=== PATIENT | female | born 1945 | race Caucasian/White ===

== ENCOUNTER 2022-10-19 16:37 | Inpatient (IN) | payer MEDICARE ==
[~2022-10-19] VITALS: Ht 152.2 cm; Wt 73.2 kg
--- NOTE | 2022-10-19 17:59 | ED Respiratory ---
General Chief Complaint: Respiratory Problems Stated Complaint: NAUSEA Nursing Triage Note: PT AMB TO RM 2 WITH CC OF SOA X6 MONTHS. [facility], NAUSEA AND CONCERN FOR PE. PT STATES THE [facility] WWANTED TO OBTAIN A CT OF ABD BUT WAS UNABLE TO D/T LABS. RECENT RESP ILLNESS 1 MONTH PRIOR. PT A&OX4 Source: patient (PT IS POOR HISTORIAN. DAUGHTER GIVES MOST INFORMATION), family (DAUGHTER) History of Present Illness Date Seen by Provider: Oct 19, 2022 Time Seen by Provider: 17:50 Initial Comments PT ARRIVES VIA POV--SENT HERE FROM [facility] C/O SHORTNESS OF BREATH X 6 MONTHS SHE HAD BEEN DX WITH BOTH BRONCHITIS AND PNEUMONIA IN THE LAST 6 MONTHS SHE DENIES ANY PRIOR HISTORY OF RESPIRATORY PROBLEMS AND DOES NOT WEAR HOME O2 OR HAVE ANY INHALERS OR NEBULIZERS O2 SATS WERE IN THE 80'S AT [facility]. SHE HAS BEEN SEEN AT [facility] CLINIC SHE C/O ONGOING NAUSEA FOR THE LAST FEW MONTHS, NO VOMITING, NO DIARRHEA, NO ABDOMINAL PAIN SHE HAS NOT BEEN EATING OR DRINKING MUCH LATELY AND HAS HAD DECREASED URINE OUTPUT SHE STATES SHE HAS HAD LAB AT [facility] AND WAS TOLD THAT SHE HAD POOR KIDNEY FUNCTION AND WAS SENT HERE WAS TOLD SHE WAS HERE TO RULE OUT BLOOD CLOT IN LUNGS NO CHEST PAIN NO FEVER NO SWELLING IN LEGS/FEET OR PAIN IN CALVES NO DIZZINESS OR SYNCOPE NO COUGH PT SMOKED < 1/2 PPD, QUIT IN 1989. DENIES ALCOHOL OR DRUG USE PT IS DIABETIC, WAS ON ORAL MEDICATIONS, BUT THESE WERE STOPPED DUE TO DECREASED KIDNEY FUNCTION. SHE HAS HTN, HYPERLIPIDEMIA SHE HAS HAD COVID VACCINE X 3, NO FLU VACCINE THIS SEASON PCP: [facility] Allergies and Home Medications Allergies Coded Allergies: No Allergy Information Available (Unverified , 10/19/22) Review of Systems Review of Systems Constitutional: no symptoms reported EENTM: no symptoms reported Respiratory: see HPI; No cough; dyspnea on exertion, short of breath Cardiovascular: no symptoms reported; No chest pain, No edema, No palpitations, No syncope Gastrointestinal: see HPI; No abdominal pain, No diarrhea; loss of appetite, nausea; No vomiting Genitourinary: see HPI, decreased output Musculoskeletal: no symptoms reported Skin: no symptoms reported Psychiatric/Neurological: No Symptoms Reported Hematologic/Lymphatic: No Symptoms Reported Immunological/Allergic: no symptoms reported Past Zcixbxk-Syiaxi-Hfjeof Hx Patient Social History Tobacco Use?: Yes Tobacco type used: Cigarettes Smoking Status: Former Smoker Substance use?: No Alcohol Use?: No Pt feels they are or have been: No Past Medical History Surgery/Hospitalization HX: HTN, DM,HDL Surgeries: No Respiratory: Yes Pneumonia, Chronic Bronchitis Cardiac: Yes High Cholesterol, Hypertension Neurological: No Genitourinary: No Gastrointestinal: No Musculoskeletal: No Endocrine: Yes Diabetes, Non-Insulin dep HEENT: No (GLASSES) Cancer: No Psychosocial: No Integumentary: No Blood Disorders: No Physical Exam Vital Signs - First Documented 10/19/22 17:17 Pulse 67 Resp 18 B/P (MAP) 150/95 (113) Pulse Ox 97 O2 Delivery Nasal Cannula O2 Flow Rate 3.00 Capillary Refill : Less Than 3 Seconds Height: '" Weight: lbs. oz. 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, no motor/sensory deficits, al ert, normal mood/affect, oriented x 3 (POOR MEMORY) Skin: normal color, warm/dry Focused Exam Lactate Level 10/19/22 17:30: Lactic Acid Level 1.06 Lactic Acid Level Laboratory Tests Test 10/19/22 17:30 Lactic Acid Level 1.06 MMOL/L (0.50-2.00) Progress/Results/Core Measures Suspected Sepsis SIRS Temperature: Pulse: 67 Respiratory Rate: 18 Laboratory Tests 10/19/22 17:30: White Blood Count 10.0 Blood Pressure 150 /95 Mean: 113 10/19/22 17:30: Lactic Acid Level 1.06 Laboratory Tests 10/19/22 17:30: Creatinine 1.35H, INR Comment 1.0, Platelet Count 536H, Total Bilirubin 1.3H Results/Orders Lab Results Laboratory Tests Test 10/19/22 17:30 10/19/22 18:07 10/19/22 20:00 Range/Units White Blood Count 10.0 4.3-11.0 10^3/uL Red Blood Count 5.21 H 3.80-5.11 10^6/uL Hemoglobin 13.4 11.5-16.0 g/dL Hematocrit 45 35-52 % Mean Corpuscular Volume 85 80-99 fL Mean Corpuscular Hemoglobin 26 25-34 pg Mean Corpuscular Hemoglobin Concent 30 L 32-36 g/dL Red Cell Distribution Width 14.7 H 10.0-14.5 % Platelet Count 536 H 130-400 10^3/uL Mean Platelet Volume 10.2 9.0-12.2 fL Immature Granulocyte % (Auto) 0 % Neutrophils (%) (Auto) 74 42-75 % Lymphocytes (%) (Auto) 14 12-44 % Monocytes (%) (Auto) 7 0-12 % Eosinophils (%) (Auto) 4 0-10 % Basophils (%) (Auto) 1 0-10 % Neutrophils # (Auto) 7.4 1.8-7.8 10^3/uL Lymphocytes # (Auto) 1.4 1.0-4.0 10^3/uL Monocytes # (Auto) 0.7 0.0-1.0 10^3/uL Eosinophils # (Auto) 0.4 H 0.0-0.3 10^3/uL Basophils # (Auto) 0.1 0.0-0.1 10^3/uL Immature Granulocyte # (Auto) 0.0 0.0-0.1 10^3/uL Erythrocyte Sedimentation Rate 9 0-30 MM/HR Prothrombin Time 13.5 12.2-14.7 SEC INR Comment 1.0 0.8-1.4 Activated Partial Thromboplast Time 31 24-35 SEC D-Dimer 0.57 H 0.00-0.49 UG/ML Sodium Level 138 135-145 MMOL/L Potassium Level 4.1 3.6-5.0 MMOL/L Chloride Level 105 98-107 MMOL/L Carbon Dioxide Level 18 L 21-32 MMOL/L Anion Gap 15 H 5-14 MMOL/L Blood Urea Nitrogen 12 7-18 MG/DL Creatinine 1.35 H 0.60-1.30 MG/DL Estimat Glomerular Filtration Rate 40 BUN/Creatinine Ratio 9 Glucose Level 114 H 70-105 MG/DL Lactic Acid Level 1.06 0.50-2.00 MMOL/L Calcium Level 9.3 8.5-10.1 MG/DL Corrected Calcium 8.9 8.5-10.1 MG/DL Magnesium Level 1.7 1.6-2.4 MG/DL Total Bilirubin 1.3 H 0.1-1.0 MG/DL Aspartate Amino Transf (AST/SGOT) 16 5-34 U/L Alanine Aminotransferase (ALT/SGPT) 12 0-55 U/L Alkaline Phosphatase 90 40-136 U/L Total Creatine Kinase 34 29-168 U/L Creatine Kinase MB 1.4 <6.6 NG/ML Myoglobin 50.7 10.0-92.0 NG/ML Troponin I < 0.028 <0.028 NG/ML C-Reactive Protein High Sensitivity 0.20 0.00-0.50 MG/DL B-Type Natriuretic Peptide 56.9 <100.0 PG/ML Total Protein 8.3 H 6.4-8.2 GM/DL Albumin 4.5 3.2-4.5 GM/DL TSH Lipscomb Testing 1.74 0.35-4.94 UIU/ML Influenza Type A (RT-PCR) Not Detected Not Detecte Influenza Type B (RT-PCR) Not Detected Not Detecte SARS-CoV-2 RNA (RT-PCR) Not Detected Not Detecte Blood Gas Puncture Site LEFT RADIAL Blood Gas Patient Temperature 97.9 Arterial Blood pH 7.32 *L 7.37-7.43 Arterial Blood Partial Pressure CO2 46 H 35-45 MMHG Arterial Blood Partial Pressure O2 96 H 79-93 MMHG Arterial Blood HCO3 23 23-27 MMOL/L Arterial Blood Total CO2 24.6 21.0-31.0 MMOL/L Arterial Blood Oxygen Saturation 97 94-100 % Arterial Blood Base Excess -2.2 -2.5-2.5 MMOL/L Deep Test YES-POS Blood Gas Ventilator Setting NO Blood Gas Inspired Oxygen 2 My Orders Orders - ADRY MEI DO Ed Iv/Invasive Line Start (10/19/22 17:57) Ekg Tracing (10/19/22 17:57) O2 (10/19/22 17:57) Monitor-Rhythm Ecg Trace Only (10/19/22 17:57) Chest 1 View, Ap/Pa Only (10/19/22 17:57) Bnp [place] (10/19/22 17:57) Cbc With Automated Diff (10/19/22 17:57) Comprehensive Metabolic Panel (10/19/22 17:57) Creatine Kinase (10/19/22 17:57) Creatine Kinase Mb (10/19/22 17:57) Hs C Reactive Protein (10/19/22 17:57) Fibrin Degradation Products (10/19/22 17:57) Lactic Acid Analyzer (10/19/22 17:57) Magnesium (10/19/22 17:57) Protime With Inr (10/19/22 17:57) Partial Thromboplastin Time (10/19/22 17:57) Thyroid Analyzer (10/19/22 17:57) Troponin I Mj (10/19/22 17:57) Ua Culture If Indicated (10/19/22 17:57) Blood Culture (10/19/22 17:57) Erythrocyte Sedimentation Rate (10/19/22 17:57) Myoglobin Serum (10/19/22 17:57) Covid 19 Inhouse Test (10/19/22 17:57) Sputum Culture (10/19/22 17:57) Ed Iv/Invasive Line Start (10/19/22 17:57) Ed Iv/Invasive Line Start (10/19/22 17:57) Vital Signs Adult Sepsis Patie Q15M (10/19/22 17:57) O2 (10/19/22 17:57) Remove Rings In Anticipation O (10/19/22 17:57) Influenza A And B By Pcr (10/19/22 17:57) Arterial Blood Gas (10/19/22 18:25) Ct Angio Chest W (R/O Pe) (10/19/22 18:43) Iohexol Injection (Omnipaque 350 Mg/Ml 1 (10/19/22 19:00) Received Contrast (Hold Metformin- Contr (10/19/22 19:00) Ns (Ivpb) 100 Ml (Sodium Chloride 0.9% 1 (10/19/22 19:00) Ed Iv/Invasive Line Start (10/19/22 19:01) Lactated Ringers 1,000 Ml (Lactated Ring (10/19/22 19:15) Ondansetron Injection (Ondansetron Inj (10/19/22 19:15) Cefepime Injection (Cefepime Injection) (10/19/22 20:00) Methylprednisolone Sod Succ (Methylpredn (10/19/22 20:00) Catheter(Urinary) Insert & Ass ,15 (10/19/22 19:49) Lidocaine 2% (Urojet) (Lidocaine 2% (Uro (10/19/22 20:00) Ed Admission (Communication) (10/19/22 19:59) Medications Given in ED Current Medications Medications Dose Ordered Sig/Zuleyma Route Start Time Stop Time Status Last Admin Dose Admin Cefepime HCl 1000 mg/Sodium Chloride 50 ml @ 100 mls/hr ONCE ONCE IV 10/19/22 20:00 10/19/22 20:29 DC 10/19/22 20:23 100 MLS/HR Iohexol 100 ml ONCE ONCE IV 10/19/22 19:00 10/19/22 19:01 DC 10/19/22 18:56 66 ML Lactated Ringer's 1,000 ml @ 0 mls/hr Q0M ONCE IV 10/19/22 19:15 10/19/22 19:16 DC 10/19/22 19:21 0 MLS/HR Methylprednisolone Sodium Succinate 125 mg ONCE ONCE IVP 10/19/22 20:00 10/19/22 20:01 DC 10/19/22 20:21 125 MG Ondansetron HCl 4 mg ONCE ONCE IVP 10/19/22 19:15 10/19/22 19:16 DC 10/19/22 19:18 4 MG Sodium Chloride 100 ml ONCE ONCE IV 10/19/22 19:00 10/19/22 19:01 DC 10/19/22 18:56 80 ML Vital Signs/I&O 10/19/22 10/19/22 17:17 17:25 Pulse 67 Resp 18 B/P (MAP) 150/95 (113) Pulse Ox 97 97 O2 Delivery Nasal Cannula Nasal Cannula O2 Flow Rate 3.00 3.00 Capillary Refill : Less Than 3 Seconds Blood Pressure Mean: 113 Progress Note : Progress Note NO PRIOR VISITS HERE ECG Initial ECG Impression Date: Oct 19, 2022 Initial ECG Impression Time: 18:22 Initial ECG Rate: 67 Initial ECG Rhythm: Normal Sinus (RBBB) Initial ECG Impression: Nonspecific Changes Initial ECG Comparisson: No Previous ECG Available Comment INTERPRETED BY ME Diagnostic Imaging Comments CXR--PER RADIOLOGIST REPORT AT 1825 FINDINGS: Single frontal radiographic view of the chest was obtained and demonstrates streaky perihilar opacities and diffuse coarse prominence of the interstitium. No large effusion or pneumothorax is seen. There is asymmetric elevation of the right hemidiaphragm. Cardiac silhouette is borderline prominent. Osseous structures show no acute abnormalities. IMPRESSION: 1. Streaky bilateral perihilar opacities and diffuse prominence of the interstitium suggests pulmonary vascular congestion with interstitial pulmonary edema. Atypical or viral pneumonia may have a similar appearance. Clinical correlation is advised. CT CHEST ANGIOGRAM--PER RADIOLOGIST REPORT AT 1948 COMPARISON: None TECHNIQUE: Postcontrast CTA of the chest was performed. Contrast was injected intravenously and timed for optimal opacification of the arterial structures. Multiplanar and 3-D reformats were also created and reviewed. Auto Exposure Controls were utilized during the CT exam to meet ALARA standards for radiation dose reduction. FINDINGS: No abnormal intraluminal filling defect is seen within the pulmonary arteries to the segmental division. Evaluation beyond this is degraded due to motion artifact. Thoracic aorta shows mild scattered calcified and noncalcified atherosclerotic disease. By NASCET criteria, there is no focal significant stenosis. There is no evidence of dissection or aneurysm. Heart is mildly enlarged. Small pericardial effusion is noted. No abnormal mediastinal adenopathy is seen. Evaluation of the lung escudero is degraded by motion artifact. There is asymmetric elevation of the right hemidiaphragm. Note is made of diffuse septal thickening with scattered areas of mixed lucency and groundglass density. Pulmonary nodule may be obscured. Trace left effusion is noted. There is no large effusion on the right. No pneumothorax is seen on either side. Osseous structures show no acute abnormalities. No lytic or blastic bony lesions are seen. Included portions of the upper abdomen are unremarkable. IMPRESSION: 1. No pulmonary embolus to the segmental division of the pulmonary arteries. 2. Mild cardiomegaly. 3. Groundglass densities with areas of septal thickening suggestive of pulmonary edema. 4. Small left effusion. Reviewed: Reviewed by Me Departure Impression Primary Impression: Acute respiratory failure with hypoxia Additional Impression: Pneumonia Disposition: ADMITTED INPATIENT Condition: Stable Admissions Decision to Admit Reason: Admit from ER (General) Decision to Admit/Date: Oct 19, 2022 Time/Decision to Admit Time: 19:55 ADRY MEI DO Oct 19, 2022 17:59
[2022-10-19 18:08] LABS: BASOPHILS # (AUTO) 0.1 10^3/uL (0.0-0.1); BASOPHILS % (AUTO) 1 % (0-10); EOSINOPHILS # (AUTO) 0.4 10^3/uL (0.0-0.3); EOSINOPHILS % (AUTO) 4 % (0-10); HEMATOCRIT 45 % (35-52); HEMOGLOBIN 13.4 g/dL (11.5-16.0); LYMPHOCYTES # (AUTO) 1.4 10^3/uL (1.0-4.0); LYMPHOCYTES % (AUTO) 14 % (12-44); MEAN CORPUSCULAR HEMOGLOBIN 26 pg (25-34); MEAN CORPUSCULAR HGB CONC 30 g/dL (32-36); MEAN CORPUSCULAR VOLUME 85 fL (80-99); MEAN PLATELET VOLUME 10.2 fL (9.0-12.2); MONOCYTES # (AUTO) 0.7 10^3/uL (0.0-1.0); MONOCYTES % (AUTO) 7 % (0-12); NEUTROPHILS # (AUTO) 7.4 10^3/uL (1.8-7.8); NEUTROPHILS % (AUTO) 74 % (42-75); PLATELET COUNT 536 10^3/uL (130-400)
[2022-10-19 18:16] LABS: PROTHROMBIN TIME PATIENT 13.5 SEC (12.2-14.7)
[2022-10-19 18:19] LABS: ALANINE AMINOTRANSFERASE 12 U/L (0-55); ALBUMIN 4.5 GM/DL (3.2-4.5); ALKALINE PHOSPHATASE 90 U/L (40-136); BILIRUBIN,TOTAL 1.3 MG/DL (0.1-1.0); BUN/CREATININE RATIO 9; CALCIUM 9.3 MG/DL (8.5-10.1); CARBON DIOXIDE 18 MMOL/L (21-32); CHLORIDE 105 MMOL/L (98-107); CREATINE KINASE 34 U/L (29-168); CREATININE SERUM 1.35 MG/DL (0.60-1.30); FIBRIN DEGRADATION PRODUCTS 0.57 UG/ML (0.00-0.49); GFR ESTIMATED 40; GLUCOSE 114 MG/DL (70-105); MAGNESIUM 1.7 MG/DL (1.6-2.4); POTASSIUM 4.1 MMOL/L (3.6-5.0); SODIUM 138 MMOL/L (135-145); TOTAL PROTEIN 8.3 GM/DL (6.4-8.2)
--- NOTE | 2022-10-19 18:21 | Diagnostic Imaging Report ---
INDICATION: Dyspnea. COMPARISON: None FINDINGS: Single frontal radiographic view of the chest was obtained and demonstrates streaky perihilar opacities and diffuse coarse prominence of the interstitium. No large effusion or pneumothorax is seen. There is asymmetric elevation of the right hemidiaphragm. Cardiac silhouette is borderline prominent. Osseous structures show no acute abnormalities. IMPRESSION: 1. Streaky bilateral perihilar opacities and diffuse prominence of the interstitium suggests pulmonary vascular congestion with interstitial pulmonary edema. Atypical or viral pneumonia may have a similar appearance. Clinical correlation is advised. Dictated by: Dictated on workstation # [id number]
[2022-10-19 18:39] LABS: CREATINE KINASE MB 1.4 NG/ML (<6.6); ERYTHROCYTE SEDIMENTATION RATE 9 MM/HR (0-30); TSH (THYROID ANALYZER) 1.74 UIU/ML (0.35-4.94)
[2022-10-19] MEDS ORDERED: HOLD METFORMIN - RECEIVED CONTRAST 20 ML VIAL IV SCH (19:00)
[2022-10-19] MEDS ORDERED: NS 100 ML (IVPB) BAG IV ONE (19:00)
[2022-10-19] MEDS ORDERED: IOHEXOL 350 MG/ML 100 ML (OMNIPAQUE 350) VIAL IV ONE (19:00)
[2022-10-19] MEDS ORDERED: ONDANSETRON INJECTION 4 MG/2 ML (SDV) IVP ONE (19:15)
[2022-10-19] MEDS ORDERED: LACTATED RINGERS 1,000 ML 1,000 ML IV ONE (19:15)
--- NOTE | 2022-10-19 19:30 | Diagnostic Imaging Report ---
INDICATION: Shortness of air. Nausea. COMPARISON: None TECHNIQUE: Postcontrast CTA of the chest was performed. Contrast was injected intravenously and timed for optimal opacification of the arterial structures. Multiplanar and 3-D reformats were also created and reviewed. Auto Exposure Controls were utilized during the CT exam to meet ALARA standards for radiation dose reduction. FINDINGS: No abnormal intraluminal filling defect is seen within the pulmonary arteries to the segmental division. Evaluation beyond this is degraded due to motion artifact. Thoracic aorta shows mild scattered calcified and noncalcified atherosclerotic disease. By NASCET criteria, there is no focal significant stenosis. There is no evidence of dissection or aneurysm. Heart is mildly enlarged. Small pericardial effusion is noted. No abnormal mediastinal adenopathy is seen. Evaluation of the lung escudero is degraded by motion artifact. There is asymmetric elevation of the right hemidiaphragm. Note is made of diffuse septal thickening with scattered areas of mixed lucency and groundglass density. Pulmonary nodule may be obscured. Trace left effusion is noted. There is no large effusion on the right. No pneumothorax is seen on either side. Osseous structures show no acute abnormalities. No lytic or blastic bony lesions are seen. Included portions of the upper abdomen are unremarkable. IMPRESSION: 1. No pulmonary embolus to the segmental division of the pulmonary arteries. 2. Mild cardiomegaly. 3. Groundglass densities with areas of septal thickening suggestive of pulmonary edema. 4. Small left effusion. Dictated by: Dictated on workstation # [id number]
[2022-10-19] MEDS ORDERED: LIDOCAINE UROJET 2% GEL 10 ML PKG TOP ONE (20:00)
[2022-10-19] MEDS ORDERED: CEFEPIME INJECTION 1,000 MG in NS (IVPB) 50 ML 50 ML IV ONE (20:00)
[2022-10-19] MEDS ORDERED: methylPREDNISolone INJ 125 MG VIAL IVP ONE (20:00)
[2022-10-19 20:04] LABS: ABG BASE EXCESS -2.2 MMOL/L (-2.5-2.5); ABG OXYGEN SATURATION 97 % (94-100); ABG PCO2 46 MMHG (35-45); ABG PO2 96 MMHG (79-93); ABG TCO2 24.6 MMOL/L (21.0-31.0)
[2022-10-19 20:07] LABS: ABG PH 7.32 (7.37-7.43); ALLENS TEST YES-POS
[2022-10-19 20:08] LABS: INSPIRED O2 2; PATIENT TEMP 97.9; VENTILATOR NO
[2022-10-19 21:18] VITALS: BP 152/152
[2022-10-19 21:23] LABS: CLARITY,URINE CLEAR; COLOR,URINE YELLOW
[2022-10-19 21:24] LABS: BACTERIA,URINE LARGE /HPF; BILIRUBIN,URINE NEGATIVE (NEGATIVE); GLUCOSE, URINE (UA) NEGATIVE (NEGATIVE); KETONES,URINE TRACE (NEGATIVE); LEUKOCYTE ESTERASE ,URINE 1+ (NEGATIVE); NITRITE,URINE POSITIVE (NEGATIVE); PH,URINE 5.5 (5-9); PROTEIN,URINE TRACE (NEGATIVE); RBC,URINE 0-2 /HPF
[2022-10-20] VITALS (13 sets, daily range): BP systolic 125–158; BP diastolic 59–77
[2022-10-20] MEDS ORDERED: NS IV 1000 ML 1,000 ML IV SCH (00:15)
[2022-10-20] MEDS ORDERED: ACETAMINOPHEN 325 MG TABLET PO PRN (00:15)
[2022-10-20] MEDS ORDERED: ONDANSETRON INJECTION 4 MG/2 ML (SDV) IV PRN (00:15)
[2022-10-20] MEDS ORDERED: MILK OF MAGNESIA 400 MG/5 ML 30 ML UDC PO PRN (00:15)
[2022-10-20] MEDS ORDERED: LACTULOSE SYRUP 10GM/15ML 30ML UDC PO PRN (00:15)
[2022-10-20] MEDS ORDERED: LORazepam 0.5 MG TABLET PO PRN (00:15)
[2022-10-20] MEDS ORDERED: CALCIUM CARBONATE 500 MG CHEW TABLET PO PRN (00:15)
[2022-10-20] MEDS ORDERED: HYDROmorphone INJECTION 2 MG/ML VIAL IV PRN (00:15)
[2022-10-20] MEDS ORDERED: ONDANSETRON 4 MG ORAL DISSOLVE TABLET PO PRN (00:15)
[2022-10-20] MEDS ORDERED: diphenhydrAMINE INJ 50 MG/ML VIAL IVP PRN (00:15)
[2022-10-20] MEDS ORDERED: BISACODYL 10 MG SUPPOSITORY PR PRN (00:15)
[2022-10-20] MEDS ORDERED: MELATONIN 3 MG TABLET PO PRN (00:15)
[2022-10-20] MEDS ORDERED: ANTACID SUSPENSION 30 ML UDC PO PRN (00:15)
[2022-10-20] MEDS ORDERED: oxyCODONE IMMEDIATE RELEASE 5 MG TABLET PO PRN (00:15)
[2022-10-20] MEDS ORDERED: ENOXAPARIN 40 MG/0.4 ML SYRINGE SC SCH (00:15)
[2022-10-20] MEDS ORDERED: diphenhydrAMINE 25 MG TABLET PO PRN (00:15)
[2022-10-20] MEDS ORDERED: RT-Ipratropium/Albuterol NEB 3 ML VIAL INH PRN (00:45)
[2022-10-20] MEDS: RT-Ipratropium/Albuterol NEB 3 ML VIAL INH SCH ×4 (02:24→23:42)
[2022-10-20] MEDS: CEFEPIME INJECTION 1,000 MG in NS (IVPB) 50 ML 50 ML IV SCH ×3 (05:21→20:42)
[2022-10-20 05:37] LABS: BASOPHILS % (AUTO) 0 % (0-10); EOSINOPHILS % (AUTO) 0 % (0-10); HEMATOCRIT 39 % (35-52); HEMOGLOBIN 11.9 g/dL (11.5-16.0); LYMPHOCYTES # (AUTO) 0.3 10^3/uL (1.0-4.0); LYMPHOCYTES % (AUTO) 5 % (12-44); MEAN CORPUSCULAR HEMOGLOBIN 27 pg (25-34); MEAN CORPUSCULAR HGB CONC 31 g/dL (32-36); MEAN CORPUSCULAR VOLUME 87 fL (80-99); MEAN PLATELET VOLUME 10.7 fL (9.0-12.2); MONOCYTES % (AUTO) 1 % (0-12); NEUTROPHILS # (AUTO) 6.1 10^3/uL (1.8-7.8); NEUTROPHILS % (AUTO) 94 % (42-75); PLATELET COUNT 427 10^3/uL (130-400); WHITE BLOOD COUNT 6.5 10^3/uL (4.3-11.0)
[2022-10-20 05:56] LABS: ALBUMIN 3.7 GM/DL (3.2-4.5); BILIRUBIN,TOTAL 0.8 MG/DL (0.1-1.0); CALCIUM 8.5 MG/DL (8.5-10.1); CREATININE SERUM 1.28 MG/DL (0.60-1.30); POTASSIUM 4.7 MMOL/L (3.6-5.0); TOTAL PROTEIN 6.8 GM/DL (6.4-8.2)
[2022-10-20] MEDS: inSUlin ASPART 1 UNIT/0.01 ML (PER UNIT) SC SCH ×2 (06:08→11:20)
[2022-10-20] MEDS: dexAMETHasone INJ 4 MG/ML SDV IV SCH ×2 (09:12→20:42)
[2022-10-20] MEDS: ENOXAPARIN 40 MG/0.4 ML SYRINGE SC SCH (09:12)
[2022-10-20] MEDS: DOCUSATE SODIUM 100 MG CAPSULE PO SCH ×2 (09:12→22:26)
[2022-10-20] MEDS: SENNOSIDES 8.6 MG TABLET PO SCH ×2 (09:12→22:26)
--- NOTE | 2022-10-20 11:12 | Physical Therapy Evaluation ---
PT Evaluation-General Medical Diagnosis Admission Date Oct 19, 2022 at 23:47 Medical Diagnosis: Respiratory Failure Onset Date: Oct 20, 2022 Therapy Diagnosis Therapy Diagnosis: Abnormal Gait Precautions Precautions/Isolations: Standard Precautions Referral Physician: Radha Morfin Reason for Referral: Evaluation/Treatment Medical History Pertinent Medical History: Atrial Fib Social History Home: Single Level Current Living Status: Alone Admitted from home in [place] via EMS due to shortness of breath. Prior Prior Level of Function SCALE: Activities may be completed with or without assistive devices. 0-Zxdzyrkrlx-zezijdt completes the activity by him/herself with no assistance from a helper. 5-Set-up or Clean-up Assistance-helper sets up or cleans up; patient completes activity. [place] assists only prior to or following the activity. 4-Supervision or Touching Assistance-helper provides verbal cues and/or touching/steadying and/or contact guard assistance as patient completes activity. Assistance may be provided throughout the activity or intermittently. 3-Partial/Moderate Assistance-helper does LESS THAN HALF the effort. [place] lifts, holds or supports trunk or limbs, but provides less than half the effort. 2-Substantial/Maximal Assistance-helper does MORE THAN HALF the effort. [place] lifts or holds trunk or limbs and provides more than half the effort. 5-Vremfngda-bzazcl does ALL the effort. Patient does none of the effort to complete the activity. Or, the assistance of 2 or more helpers is required for the patient to complete the activity. If activity was not attempted, code reason: 7-Patient Refused. 9-Not Applicable-not attempted and the patient did not perform the activity before the current illness, exacerbation or injury. 10-Not Attempted due to Environmental Limitations-(lack of equipment, weather restraints, etc.). 88-Not Attempted due to Medical Conditions or Safety Concerns. Bed Mobility: 6 Transfers (B,C,W/C): 6 Gait: 6 Stairs: 6 Prior Devices Use: None PT Evaluation-Current Subjective Pt report she is feeling pretty good. No c/o pain or SOB. Objective Patient Orientation: Normal For Age ROM/Strength Strength Upper Extremities WFL Strength Lower Extremities 5/5 Sensory Vision: Wears Glasses Hearing: Functional Transfers Roll Left to Right (QC): 6 Sit to Lying (QC): 6 Lying to Sitting/Side of Bed(Q: 6 Sit to Stand (QC): 6 Chair/Bnu-bu-Gzmlh Xfer(QC): 6 Toilet Transfer (QC): 6 Gait Does the Patient Walk?: Yes Mode of Locomotion: Walk Anticipated Mode of Locomotion: Walk Distance: 400 Gait Assistive Device: None Comments/Gait Description Ambulate 400ft with no device and SBA, assist for IV. Pt had 2 toe drags when her sneaker caught traction on the floor. Able to self recover. Balance Sitting Static: Normal Sitting Dynamic: Normal Standing Static: Good Standing Dynamic: Good Assessment/Needs Pt has good strength and mobility. She demonstrated safe mobility in the room during transfers, bed mobility, and gait. Pt is safe to move around the room and floor with assist from nursing for lines. Rehab Potential: Good PT Switchboard Receptionist Goals Switchboard Receptionist Goals PT Switchboard Receptionist Goals Time Frame: Oct 20, 2022 Roll Left & Right (QC): 6 Sit to Lying (QC): 6 Lying-Sitting on Side/Bed(QC): 6 Sit to Stand (QC): 6 Chair/Uvk-ni-Hvxnl Xfer(QC): 6 Walk 150 ft (QC): 6 PT Plan Treatment/Plan Treatment Plan: Discontinue PT Treatment Duration: Oct 20, 2022 Frequency: 1 time per week Time Time In: 830 Time Out: 900 DATE: Oct 20, 2022 Total Billed Treatment Time: 30 Total Billed Treatment evaluation Moderate complexity 30 min SAHRA TOLEDO PT Oct 20, 2022 11:12
[2022-10-20] MEDS ORDERED: AMLO-250 PO (12:03)
[2022-10-20] MEDS ORDERED: CARV25TA PO (12:03)
[2022-10-20] MEDS ORDERED: ASPI-1238 PO (12:03)
[2022-10-20] MEDS ORDERED: FLUO20CA48 PO ×2 (12:03)
[2022-10-20] MEDS ORDERED: ATOR10TA66 PO (12:03)
[2022-10-20] MEDS ORDERED: OMEP40CA6 PO (12:03)
[2022-10-20] MEDS ORDERED: ALBU18HF2 INH (12:03)
[2022-10-20] MEDS ORDERED: LISI5TAB20 PO (12:03)
[2022-10-20] MEDS ORDERED: LEVO25TA5 PO (12:03)
--- NOTE | 2022-10-20 15:32 | Consultation-Cardiology ---
HPI-Cardiology Cardiology Consultation: Date of Consultation 10/20/22 Date of Admission Attending Physician Arabella,Local Physician Admitting Physician Admitting Physician: Radha Morfin DO Attending Physician: Radha Morfin DO Consulting Physician Alfred PEMBERTON MD HPI: Time Seen by a Provider: 15:28 Chief Complaint: Shortness of breath This is a 77-year-old lady who presents with shortness of breath and according to the patient worsening kidney function. She denies any significant other cardiac complaints. She specifically denies chest pain. Mild weakness. Not an active smoker.Pertinent family history is negative. Review of Systems-Cardiology Review of Systems Constitutional: malaise Eyes: no symptoms reported Ears/Nose/Throat: no symptoms reported Respiratory: shortness of breath Cardiovascular: No chest pain Genitourinary: no symptoms reported Musculoskeletal: no symptoms reported Skin: no symptoms reported Psychiatric/Neurological: no symptoms reported Hematologic: no symptoms reported TFQ-Vucrbr-Vlqnbr Hx Patient Social History Smoking Status: Former Smoker Alcohol Use?: No Pt feels they are or have been: No Tobacco type used: Cigarettes Past Medical History PMH As described under Assessment. Allergies and Home Medications Allergies Coded Allergies: pineapple (Verified Allergy, Unknown, 10/20/22) CAN EAT CANNED PINEAPPLE BUT NOT FRESH Patient Home Medication List Home Medication List Reviewed: Yes Albuterol Sulfate (Ventolin Hfa) 90 Mcg Hfa.aer.ad, 2 PUFF INH Q6H PRN for SHORTNESS OF BREATH, (Reported) Entered as Reported by: MARTHA HARTMANN on 10/20/221202 Last Action: Held Amlodipine Besylate (Amlodipine Besylate) 5 Mg Tablet, 5 MG PO BID, (Reported) Entered as Reported by: MARTHA HARTMANN on 10/20/221202 Last Action: Continued Aspirin (Aspirin EC) 81 Mg Tablet.dr, 81 MG PO DAILY, (Reported) Entered as Reported by: MARTHA HARTMANN on 10/20/221202 Last Action: Continued Atorvastatin Calcium (Atorvastatin Calcium) 10 Mg Tablet, 10 MG PO HS, (Reported) Entered as Reported by: MARTHA HARTMANN on 10/20/221202 Last Action: Continued Carvedilol (Carvedilol) 25 Mg Tablet, 25 MG PO BID, (Reported) Entered as Reported by: MARTHA HARTMANN on 10/20/221202 Last Action: Converted Fluoxetine HCl (Fluoxetine HCl) 20 Mg Capsule, 40 MG PO DAILY, (Reported) Entered as Reported by: MARTHA HARTMANN on 10/20/221202 Last Action: Continued Fluoxetine HCl (Fluoxetine HCl) 20 Mg Capsule, 20 MG PO HS, (Reported) Entered as Reported by: MARTHA HARTMANN on 10/20/221202 Last Action: Continued Levothyroxine Sodium (Levothyroxine Sodium) 25 Mcg Tablet, 25 MCG PO DAILY, (Reported) Entered as Reported by: MARTHA HARTMANN on 10/20/221202 Last Action: Continued Lisinopril (Lisinopril) 5 Mg Tablet, 5 MG PO 1000, (Reported) Entered as Reported by: MARTHA HARTMANN on 10/20/221202 Last Action: Continued Omeprazole (Omeprazole) 40 Mg Capsule.dr, 40 MG PO DAILY, (Reported) Entered as Reported by: MARTHA HARTMANN on 10/20/221202 Last Action: Converted Exam Vital Signs Vital Signs Date Time Temp Pulse Resp B/P (MAP) Pulse Ox O2 Delivery O2 Flow Rate FiO2 10/20/22 15:04 91 Nasal Cannula 1.00 10/20/22 12:45 88 10/20/22 11:59 36.2 18 153/71 (98) Physical Exam Constitutional exam: No respiratory distress. Chest: Clear to auscultation bilaterally. CVS: Normal rate and rhythm. Neuro: Nonfocal. Labs Laboratory Tests Test 10/19/22 17:30 10/19/22 18:07 10/19/22 20:00 10/19/22 20:35 Range/Units White Blood Count 10.0 4.3-11.0 10^3/uL Red Blood Count 5.21 H 3.80-5.11 10^6/uL Hemoglobin 13.4 11.5-16.0 g/dL Hematocrit 45 35-52 % Mean Corpuscular Volume 85 80-99 fL Mean Corpuscular Hemoglobin 26 25-34 pg Mean Corpuscular Hemoglobin Concent 30 L 32-36 g/dL Red Cell Distribution Width 14.7 H 10.0-14.5 % Platelet Count 536 H 130-400 10^3/uL Mean Platelet Volume 10.2 9.0-12.2 fL Immature Granulocyte % (Auto) 0 % Neutrophils (%) (Auto) 74 42-75 % Lymphocytes (%) (Auto) 14 12-44 % Monocytes (%) (Auto) 7 0-12 % Eosinophils (%) (Auto) 4 0-10 % Basophils (%) (Auto) 1 0-10 % Neutrophils # (Auto) 7.4 1.8-7.8 10^3/uL Lymphocytes # (Auto) 1.4 1.0-4.0 10^3/uL Monocytes # (Auto) 0.7 0.0-1.0 10^3/uL Eosinophils # (Auto) 0.4 H 0.0-0.3 10^3/uL Basophils # (Auto) 0.1 0.0-0.1 10^3/uL Immature Granulocyte # (Auto) 0.0 0.0-0.1 10^3/uL Erythrocyte Sedimentation Rate 9 0-30 MM/HR Prothrombin Time 13.5 12.2-14.7 SEC INR Comment 1.0 0.8-1.4 Activated Partial Thromboplast Time 31 24-35 SEC D-Dimer 0.57 H 0.00-0.49 UG/ML Sodium Level 138 135-145 MMOL/L Potassium Level 4.1 3.6-5.0 MMOL/L Chloride Level 105 98-107 MMOL/L Carbon Dioxide Level 18 L 21-32 MMOL/L Anion Gap 15 H 5-14 MMOL/L Blood Urea Nitrogen 12 7-18 MG/DL Creatinine 1.35 H 0.60-1.30 MG/DL Estimat Glomerular Filtration Rate 40 BUN/Creatinine Ratio 9 Glucose Level 114 H 70-105 MG/DL Lactic Acid Level 1.06 0.50-2.00 MMOL/L Calcium Level 9.3 8.5-10.1 MG/DL Corrected Calcium 8.9 8.5-10.1 MG/DL Magnesium Level 1.7 1.6-2.4 MG/DL Total Bilirubin 1.3 H 0.1-1.0 MG/DL Aspartate Amino Transf (AST/SGOT) 16 5-34 U/L Alanine Aminotransferase (ALT/SGPT) 12 0-55 U/L Alkaline Phosphatase 90 40-136 U/L Total Creatine Kinase 34 29-168 U/L Creatine Kinase MB 1.4 <6.6 NG/ML Myoglobin 50.7 10.0-92.0 NG/ML Troponin I < 0.028 <0.028 NG/ML C-Reactive Protein High Sensitivity 0.20 0.00-0.50 MG/DL B-Type Natriuretic Peptide 56.9 <100.0 PG/ML Total Protein 8.3 H 6.4-8.2 GM/DL Albumin 4.5 3.2-4.5 GM/DL TSH [place] Testing 1.74 0.35-4.94 UIU/ML Influenza Type A (RT-PCR) Not Detected Not Detecte Influenza Type B (RT-PCR) Not Detected Not Detecte SARS-CoV-2 RNA (RT-PCR) Not Detected Not Detecte Blood Gas Puncture Site LEFT RADIAL Blood Gas Patient Temperature 97.9 Arterial Blood pH 7.32 *L 7.37-7.43 Arterial Blood Partial Pressure CO2 46 H 35-45 MMHG Arterial Blood Partial Pressure O2 96 H 79-93 MMHG Arterial Blood HCO3 23 23-27 MMOL/L Arterial Blood Total CO2 24.6 21.0-31.0 MMOL/L Arterial Blood Oxygen Saturation 97 94-100 % Arterial Blood Base Excess -2.2 -2.5-2.5 MMOL/L Deep Test YES-POS Blood Gas Ventilator Setting NO Blood Gas Inspired Oxygen 2 Urine Color YELLOW Urine Clarity CLEAR Urine pH 5.5 5-9 Urine Specific [place] <=1.005 1.016-1.022 Urine Protein TRACE H NEGATIVE Urine Glucose (UA) NEGATIVE NEGATIVE Urine Ketones TRACE H NEGATIVE Urine Nitrite POSITIVE H NEGATIVE Urine Bilirubin NEGATIVE NEGATIVE Urine Urobilinogen 0.2 < = 1.0 MG/DL Urine Leukocyte Esterase 1+ H NEGATIVE Urine RBC (Auto) NEGATIVE NEGATIVE Urine RBC 0-2 /HPF Urine WBC 5-10 H /HPF Urine Squamous Epithelial Cells 5-10 /HPF Urine Crystals NONE /LPF Urine Bacteria LARGE H /HPF Urine Casts NONE /LPF Urine Mucus SMALL H /LPF Urine Culture Indicated YES Test 10/20/22 05:14 10/20/22 05:27 10/20/22 11:19 Range/Units Troponin I < 0.028 <0.028 NG/ML White Blood Count 6.5 4.3-11.0 10^3/uL Red Blood Count 4.49 3.80-5.11 10^6/uL Hemoglobin 11.9 11.5-16.0 g/dL Hematocrit 39 35-52 % Mean Corpuscular Volume 87 80-99 fL Mean Corpuscular Hemoglobin 27 25-34 pg Mean Corpuscular Hemoglobin Concent 31 L 32-36 g/dL Red Cell Distribution Width 14.8 H 10.0-14.5 % Platelet Count 427 H 130-400 10^3/uL Mean Platelet Volume 10.7 9.0-12.2 fL Immature Granulocyte % (Auto) 1 % Neutrophils (%) (Auto) 94 H 42-75 % Lymphocytes (%) (Auto) 5 L 12-44 % Monocytes (%) (Auto) 1 0-12 % Eosinophils (%) (Auto) 0 0-10 % Basophils (%) (Auto) 0 0-10 % Neutrophils # (Auto) 6.1 1.8-7.8 10^3/uL Lymphocytes # (Auto) 0.3 L 1.0-4.0 10^3/uL Monocytes # (Auto) 0.0 0.0-1.0 10^3/uL Eosinophils # (Auto) 0.0 0.0-0.3 10^3/uL Basophils # (Auto) 0.0 0.0-0.1 10^3/uL Immature Granulocyte # (Auto) 0.0 0.0-0.1 10^3/uL Sodium Level 138 135-145 MMOL/L Potassium Level 4.7 3.6-5.0 MMOL/L Chloride Level 109 H 98-107 MMOL/L Carbon Dioxide Level 19 L 21-32 MMOL/L Anion Gap 10 5-14 MMOL/L Blood Urea Nitrogen 14 7-18 MG/DL Creatinine 1.28 0.60-1.30 MG/DL Estimat Glomerular Filtration Rate 43 BUN/Creatinine Ratio 11 Glucose Level 197 H 70-105 MG/DL Calcium Level 8.5 8.5-10.1 MG/DL Corrected Calcium 8.7 8.5-10.1 MG/DL Total Bilirubin 0.8 0.1-1.0 MG/DL Aspartate Amino Transf (AST/SGOT) 14 5-34 U/L Alanine Aminotransferase (ALT/SGPT) 10 0-55 U/L Alkaline Phosphatase 70 40-136 U/L Total Protein 6.8 6.4-8.2 GM/DL Albumin 3.7 3.2-4.5 GM/DL Glucometer 175 H 70-110 MG/DL ECG Impression ECG Comment Normal sinus rhythm with right bundle branch block.S1 q3 inverted T3. A/P-Cardiology Assessment/Admission Diagnosis Shortness of breath, Acute on chronic kidney disease, Right bundle branch block, Negative troponin, Negative BNP. Plan Patient complains of mild shortness of breath. No significant florid congestive heart failure. Will recommend an echocardiogram. CKD 3. Negative troponin, negative BNP. Right bundle branch block with S1, q3, inverted T3 pattern on EKG; Suggest RV strain. CTA negative for PE. Will check echocardiogram to rule out RV dysfunction. Alfred PEMBERTON MD Oct 20, 2022 15:32
--- NOTE | 2022-10-20 15:52 | History & Physical-Hospitalist ---
ZULEYKAGARY 10/20/22 1552: History of Present Illness HPI/Chief Complaint 77-year-old female presented from [facility] on 10/19 with chief complaint of nausea, SOB. Reports that [facility] told her that her kidney labs were abnormal and needed to have a PE ruled out. She reports that she has been dealing with SOB and nausea for about six months now, she has been dx with bronchitis and pneumonia during this time. She denies any history of respiratory problems, home O2, nebulizers, or inhalers. While at [facility] her O2 was in the 80s. She reports that the nausea has caused her to not eat and drink as much during this time, has had decreased UOP. while in the ED, her EKG showed a RBBB. CT showed no PE, did have groundglass densities with areas of septal thickening suggestive of pulmonary edema. Urinalysis showed bacteria, preliminary Klebsiella/enterobacter, waiting on final culture results. ABG showed a pH of 7.32, pCO2 of 46 and pO2 of 96. Patient is seen today laying comfortably in bed. She reports that she is not having any SOB. She is currently on 1L O2, titrated down from 3L, has maintained good O2 sats. She also states that she is not having any nausea today and her appetite has returned. Denies any urinary symptoms. Patient reports that she feels much better today, has no new complaints. Source: patient Exam Limitations: no limitations Date Seen 10/20/22 Time Seen by a Provider: 12:30 Attending Physician Arabella,Local Physician PCP Admitting Physician: Radha Morfin DO Attending Physician: Radha Morfin DO Referring Physician Date of Admission Oct 20, 2022 at 10:30 Home Medications & Allergies Home Medications Reviewed patient Home Medication Reconciliation performed by pharmacy medication reconciliations simulation technician and/or nursing. Patients Allergies have been reviewed. Allergies Allergies Coded Allergies pineapple (Verified Allergy, Unknown, 10/20/22) CAN EAT CANNED PINEAPPLE BUT NOT FRESH Past Pejamfz-Ntsnix-Heibno Hx Patient Social History Tobacco Use?: Yes Tobacco type used: Cigarettes Smoking Status: Former Smoker Substance use?: No Alcohol Use?: No Pt feels they are or have been: No Current Status Communicates: Verbally Primary Language: Bahraini Preferred Spoken Language: Bahraini Past Medical History Pneumonia, Chronic Bronchitis High Cholesterol, Hypertension Diabetes, Non-Insulin dep Blood Disorders: No Review of Systems Constitutional: No chills, No fever EENTM: No hearing loss, No blurred vision Respiratory: No cough; short of breath (Improved, none currently) Cardiovascular: No chest pain, No palpitations Gastrointestinal: No constipation, No diarrhea; nausea (improved, none today); No vomiting Genitourinary: No dysuria, No hematuria Musculoskeletal: No back pain, No neck pain Skin: No change in color, No change in hair/nails Psychiatric/Neurological: Denies Numbness, Denies Weakness Physical Exam Physical Exam Vital Signs Vital Signs - First Documented 10/19/22 10/20/22 17:17 00:00 Temp 36.0 Pulse 67 Resp 18 B/P (MAP) 150/95 (113) Pulse Ox 97 O2 Delivery Nasal Cannula O2 Flow Rate 3.00 Capillary Refill : Less Than 3 Seconds Height, Weight, BMI Height: '" Weight: lbs. oz. kg; 31.51 BMI Method: General Appearance: No Apparent Distress, WD/WN HEENT: PERRL/EOMI Neck: Non Tender, Supple Respiratory: Chest Non Tender, No Accessory Muscle Use, No Respiratory Distress, Crackles (slight, b/l) Cardiovascular: Regular Rate, Rhythm, No Edema, Normal Peripheral Pulses Gastrointestinal: Non Tender, Soft Rectal: Deferred Back: No Vertebral Tenderness Extremity: Normal Capillary Refill, Non Tender, No Calf Tenderness, No Pedal Edema Neurologic/Psychiatric: Alert, Oriented x3 Skin: Normal Color, Warm/Dry Lymphatic: No Adenopathy Results Results/Procedures Labs Laboratory Tests 10/19/22 17:30 10/20/22 05:27 Patient resulted labs reviewed. Assessment/Plan Admission Diagnosis Acute respiratory failure with hypoxia Admission Status: Observation Assessment and Plan Acute respiratory failure with hypoxia: has maintained good O2 sats, titrated down to 1L [place] dexamethasone Q12H, duoneb Q6H and PRN UTI: cefepime 1g Q8H, final culture results pending RBBB: cardiology consulted, appreciate recs, possible echo CKD stage 3b: BUN and Cr measured at 14 and 1.28 today, continue to monitor HTN: resume home meds Hypothyroidism: resume home dose levothyroxine HLD: resume home statin Lovenox DVT prophylaxis RADHA MORFIN DO 10/20/222020: History of Present Illness HPI/Chief Complaint Chief complaint: Shortness of breath HPI: This is a 77-year-old female who presented to the ER with acute hypoxic respiratory failure. Place in cardiac stepdown on oxygen. Source: patient Exam Limitations: no limitations Past Hrozgwv-Fwvznb-Fwkyyc Hx Patient Social History Marrital Status: single Employed/Student: retired Smoking Status: Former Smoker Past Medical History High Cholesterol, Hypertension Review of Systems Constitutional: see HPI Respiratory: dyspnea on exertion, short of breath (Improved, none currently), wheezing Physical Exam Physical Exam General Appearance: No Apparent Distress, Chronically ill Respiratory: No Accessory Muscle Use, No Respiratory Distress, Crackles (slight, b/l) Cardiovascular: Regular Rate, Rhythm Assessment/Plan Admission Diagnosis Assessment: Acute hypoxic respiratory failure Exacerbation of bronchospasm HTN Plan: Supportive care Oxygen Nebs IV steroids Admission Status: Inpatient Order (span 2 midnights) Reason for Inpatient Admission: Acute respiratory failure Supervisory-Addendum Brief Verification & Attestation Participated in pt care: history, MDM, physical Personally performed: exam, history, MDM, supervision of care Care discussed with: Medical Student Procedures: n/a Results interpretation: Verified all documentation Verification and Attestation of Medical Student E/M Service A medical student performed and documented this service in my presence. I reviewed and verified all information documented by the medical student and made modifications to such information, when appropriate. I personally performed the physical exam and medical decision making. Radha Morfin, Oct 20, 2022,20:19 GARY GARDINER Oct 20, 2022 15:52 RADHA MORFIN DO Oct 20, 2022 20:21
[2022-10-20] MEDS: carvediloL 12.5 MG TABLET PO SCH (20:42)
[2022-10-20] MEDS: amLODIPine 5 MG TABLET PO SCH (20:42)
[2022-10-20] MEDS ORDERED: FLUoxetine 20 MG CAPSULE PO SCH (21:00)
[2022-10-21] VITALS (7 sets, daily range): BP systolic 148–159; BP diastolic 67–76
[2022-10-21] MEDS: RT-Ipratropium/Albuterol NEB 3 ML VIAL INH SCH ×3 (02:48→14:55)
[2022-10-21 05:46] LABS: BASOPHILS % (AUTO) 0 % (0-10); EOSINOPHILS % (AUTO) 0 % (0-10); HEMATOCRIT 37 % (35-52); HEMOGLOBIN 11.2 g/dL (11.5-16.0); LYMPHOCYTES # (AUTO) 0.5 10^3/uL (1.0-4.0); LYMPHOCYTES % (AUTO) 4 % (12-44); MEAN CORPUSCULAR HEMOGLOBIN 26 pg (25-34); MEAN CORPUSCULAR HGB CONC 30 g/dL (32-36); MEAN CORPUSCULAR VOLUME 85 fL (80-99); MEAN PLATELET VOLUME 10.5 fL (9.0-12.2); MONOCYTES # (AUTO) 0.4 10^3/uL (0.0-1.0); MONOCYTES % (AUTO) 3 % (0-12); NEUTROPHILS # (AUTO) 12.6 10^3/uL (1.8-7.8); NEUTROPHILS % (AUTO) 92 % (42-75); PLATELET COUNT 437 10^3/uL (130-400); WHITE BLOOD COUNT 13.6 10^3/uL (4.3-11.0)
[2022-10-21] MEDS: CEFEPIME INJECTION 1,000 MG in NS (IVPB) 50 ML 50 ML IV SCH ×2 (06:00→13:08)
[2022-10-21 06:09] LABS: ALBUMIN 3.6 GM/DL (3.2-4.5); BILIRUBIN,TOTAL 0.7 MG/DL (0.1-1.0); CALCIUM 8.7 MG/DL (8.5-10.1); CREATININE SERUM 1.08 MG/DL (0.60-1.30); POTASSIUM 4.4 MMOL/L (3.6-5.0); TOTAL PROTEIN 6.4 GM/DL (6.4-8.2)
[2022-10-21 06:16] LABS: ELLIPT/OVALOCYTES SLIGHT; HYPOCHROMASIA SLIGHT; LYMPHOCYTES % (MANUAL) 5 %; MICROCYTOSIS SLIGHT; NEUTROPHILS % (MANUAL) 95 %; POIKILOCYTOSIS SLIGHT; TEAR DROP CELLS SLIGHT
[2022-10-21] MEDS ORDERED: LEVOTHYROXINE 25 MCG TABLET PO SCH (06:30)
[2022-10-21] MEDS ORDERED: FLUoxetine 20 MG CAPSULE PO SCH (09:00)
[2022-10-21] MEDS ORDERED: NON-FORMULARY MEDICATION 1 EA EA (Omeprazole 40 MG) PO SCH (09:00)
[2022-10-21] MEDS ORDERED: ASPIRIN enteric coated 81MG TABLET PO SCH (09:00)
[2022-10-21] MEDS ORDERED: PANTOPRAZOLE 40 MG TABLET PO SCH (09:00)
[2022-10-21] MEDS: SENNOSIDES 8.6 MG TABLET PO SCH ×2 (09:49→09:57)
[2022-10-21] MEDS: carvediloL 12.5 MG TABLET PO SCH (09:49)
[2022-10-21] MEDS: amLODIPine 5 MG TABLET PO SCH (09:49)
[2022-10-21] MEDS: dexAMETHasone INJ 4 MG/ML SDV IV SCH (09:50)
[2022-10-21] MEDS: ENOXAPARIN 40 MG/0.4 ML SYRINGE SC SCH (09:50)
[2022-10-21] MEDS: DOCUSATE SODIUM 100 MG CAPSULE PO SCH (09:57)
[2022-10-21] MEDS ORDERED: CEFD300C3 PO (12:47)
[2022-10-21] MEDS ORDERED: IPRA3AMP31 INH (12:47)
[2022-10-21] MEDS ORDERED: DEXA6TAB PO (12:47)
--- NOTE | 2022-10-21 12:48 | Discharge Summary ---
Discharge Summary Hospital Course Was the Problem List Reviewed?: Yes Problems/Dx: (1) Acute respiratory failure with hypoxia (2) Pneumonia Hospital Course Date of Admission: Oct 20, 2022 at 10:30 Admission Diagnosis : Family Physician/Provider: No,Local Physician Date of Discharge: 10/21/22 Discharge Diagnosis: [ ] Hospital Course: 77-year-old female presented from [facility] on 10/19 with chief complaint of nausea, SOB. Reports that [facility] told her that her kidney labs were abnormal and needed to have a PE ruled out. She reported that she has been dealing with SOB and nausea for about six months now, she has been dx with bronchitis and pneumonia during this time. While at [facility] her O2 was in the 80s. She reports that the nausea has caused her to not eat and drink as much during this time, has had decreased UOP. while in the ED, her EKG showed a RBBB. CT showed no PE, did have groundglass densities with areas of septal thickening suggestive of pulmonary edema. Urinalysis showed bacteria, preliminary Klebsiella/enterobacter. She was placed on supplemental O2 via [place] during her stay, initially at 3L titrated down to 1, she did not use home O2 prior to this visit. She was given cefepime during her stay. Cardiology was consulted, patient underwent an echo, showed EF of 75-80%, grade 1 diastolic dysfunction. Patient's SOB improved throughout her stay, maintained good O2 sats on 1L, home oxygen study revealed she needs supplemental O2 at home on discharge. She is being discharged today with albuterol, dexamethasone, duoneb, cefdinir, and home O2 and instructed to follow up with her PCP. Labs and Pending Lab Test: Laboratory Tests 10/21/22 05:34: White Blood Count 13.6H, Red Blood Count 4.37, Hemoglobin 11.2L, Hematocrit 37, Mean Corpuscular Volume 85, Mean Corpuscular Hemoglobin 26, Mean Corpuscular Hemoglobin Concent 30L, Red Cell Distribution Width 14.6H, Platelet Count 437H, Mean Platelet Volume 10.5, Immature Granulocyte % (Auto) 1, Neutrophils (%) (Auto) 92H, Lymphocytes (%) (Auto) 4L, Monocytes (%) (Auto) 3, Eosinophils (%) (Auto) 0, Basophils (%) (Auto) 0, Neutrophils # (Auto) 12.6H, Lymphocytes # (Auto) 0.5L, Monocytes # (Auto) 0.4, Eosinophils # (Auto) 0.0, Basophils # (Auto) 0.0, Immature Granulocyte # (Auto) 0.1, Neutrophils % (Manual) 95, Lymphocytes % (Manual) 5, Hypochromasia SLIGHT, Poikilocytosis SLIGHT, Microcytosis SLIGHT, Tear Drop Cells SLIGHT, Elliptocytes SLIGHT, Sodium Level 136, Potassium Level 4.4, Chloride Level 108H, Carbon Dioxide Level 21, Anion Gap 7, Blood Urea Nitrogen 18, Creatinine 1.08, Estimat Glomerular Filtration Rate 52, BUN/Creatinine Ratio 17, Glucose Level 161H, Calcium Level 8.7, Corrected Calcium 9.0, Total Bilirubin 0.7, Aspartate Amino Transf (AST/SGOT) 10, Alanine Aminotransferase (ALT/SGPT) 10, Alkaline Phosphatase 63, Total Protein 6.4, Albumin 3.6 Microbiology 10/19/22 Urine Culture - Preliminary, Resulted Probable Klebsiella/Enterobact 10/19/22 Blood Culture - Preliminary, Resulted No growth Home Meds Active Dexamethasone 6 Mg Tablet 6 Mg PO DAILY Cefdinir 300 Mg Capsule 300 Mg PO BID Iprat-Albut 0.5-3(2.5) mg/3 ml (Ipratropium/Albuterol Sulfate) 0.5 Mg-3 Mg (2.5 Mg Base)/3 Ml Ampul.neb 3 Ml INH RTQ4HR PRN Reported Aspirin EC (Aspirin) 81 Mg Tablet. 81 Mg PO DAILY Atorvastatin Calcium 10 Mg Tablet 10 Mg PO HS Amlodipine Besylate 5 Mg Tablet 5 Mg PO BID Fluoxetine HCl 20 Mg Capsule 20 Mg PO HS Fluoxetine HCl 20 Mg Capsule 40 Mg PO DAILY TAKES 2 (20MG) CAPS Carvedilol 25 Mg Tablet 25 Mg PO BID Omeprazole 40 Mg Capsule.dr 40 Mg PO DAILY Ventolin Hfa (Albuterol Sulfate) 90 Mcg Hfa.aer.ad 2 Puff INH Q6H PRN Lisinopril 5 Mg Tablet 5 Mg PO 1000 Levothyroxine Sodium 25 Mcg Tablet 25 Mcg PO DAILY Assessment/Pt Instructions PCP in 1 week Discharge Planning: <30 minutes discharge planning Discharge Instructions Discharge Diet: No Restrictions Discharge Physical Examination Vital Signs Vital Signs Date Time Temp Pulse Resp B/P (MAP) Pulse Ox O2 Delivery O2 Flow Rate FiO2 10/21/22 11:50 37.1 74 20 156/70 (98) 96 Nasal Cannula 2.00 General Appearance: No Apparent Distress, WD/WN Respiratory: Lungs Clear, Normal Breath Sounds Allergies: Coded Allergies: pineapple (Verified Allergy, Unknown, 10/20/22) CAN EAT CANNED PINEAPPLE BUT NOT FRESH Discharge Summary Date of Admission Oct 20, 2022 at 10:30 Date of Discharge Discharge Date: Oct 21, 2022 Admission Diagnosis Assessment: Acute hypoxic respiratory failure Exacerbation of bronchospasm HTN Plan: Supportive care Oxygen Nebs IV steroids MIKE DICKSON DO Oct 21, 2022 12:48
--- NOTE | 2022-10-21 13:08 | Progress Note ---
GARY GARDINER 10/21/22 1308: Progress Note 77-year-old female presented from [facility] on 10/19 with chief complaint of nausea, SOB. Reports that [facility] told her that her kidney labs were abnormal and needed to have a PE ruled out. She reported that she has been dealing with SOB and nausea for about six months now, she has been dx with bronchitis and pneumonia during this time. While at [facility] her O2 was in the 80s. She reports that the nausea has caused her to not eat and drink as much during this time, has had decreased UOP. while in the ED, her EKG showed a RBBB. CT showed no PE, did have groundglass densities with areas of septal thickening suggestive of pulmonary edema. Urinalysis showed bacteria, preliminary Klebsiella/enterobacter. She was placed on supplemental O2 via [place] during her stay, initially at 3L titrated down to 1, she did not use home O2 prior to this visit. She was given cefepime during her stay. Cardiology was consulted, patient underwent an echo, showed EF of 75-80%, grade 1 diastolic dysfunction. Patient's SOB improved throughout her stay, maintained good O2 sats on 1L, home oxygen study revealed she needs supplemental O2 at home on discharge. She is being discharged today with albuterol, dexamethasone, duoneb, cefdinir, and home O2 and instructed to follow up with her PCP. RADHA OMRFIN DO 10/22/22 0447: Supervisory-Addendum Brief Verification & Attestation Participated in pt care: history, MDM, physical Personally performed: exam, history, MDM, supervision of care Care discussed with: Medical Student Procedures: n/a Results interpretation: Verified all documentation Verification and Attestation of Medical Student E/M Service A medical student performed and documented this service in my presence. I reviewed and verified all information documented by the medical student and made modifications to such information, when appropriate. I personally performed the physical exam and medical decision making. Radha Morfin Oct 22, 2022,04:47 GARY GARDINER Oct 21, 2022 13:08 RADHA MORFIN DO Oct 22, 2022 04:47
== END 2022-10-21 19:29 | disposition home or self-care (01) | DRG 193 ==
LOC: EDUNIT# 16:37 → ER 16:38 → CSD 23:47 → OBSVTOIN 10-20 10:30
PROVIDERS: ADMIT Internal Medicine; ATTEND Internal Medicine
DX: J18.9 Pneumonia, unspecified organism (principal); J96.01 Acute respiratory failure with hypoxia; N39.0 Urinary tract infection, site not specified; J98.01 Acute bronchospasm; Z87.891 Personal history of nicotine dependence; E78.00 Pure hypercholesterolemia, unspecified; I45.10 Unspecified right bundle-branch block; N18.32 Chronic kidney disease, stage 3b; I12.9 Hypertensive chronic kidney disease with stage 1 through stage 4 chronic kidney disease, or unspecified chronic kidney disease; E03.9 Hypothyroidism, unspecified; E11.22 Type 2 diabetes mellitus with diabetic chronic kidney disease
CPT/HCPCS: 36415; 36600; 51702; 71045; 71275; 80053; 81000; 82550; 82553; 82805; 82947; 83605; 83735; 83874; 83880; 84443; 84484; 85007; 85025; 85027; 85379; 85610; 85652; 85730; 86141; 87040; 87077; 87088; 87186; 87636; 93005; 93041; 93306; 94640; 94660; 94664; 94761

== ENCOUNTER → 2022-11-15 | Outpatient (CLI) | payer MEDICARE ==
[~2022-11-15] MED LIST: ALBU18HF2 INH; AMLO-250 PO; ASPI-1238 PO; ATOR10TA66 PO; CARV25TA PO; CEFD300C3 PO; DEXA6TAB PO; FLUO20CA48 PO; IPRA3AMP31 INH; LEVO25TA5 PO; LISI5TAB20 PO; OMEP40CA6 PO; RT-ALBUTEROL SULF 2.5 MG/3 ML PRE-MIX VIAL INH ONE
== END ==
LOC: RT 15:18
PROVIDERS: ATTEND Nurse Practitioner Family
DX: J44.9 Chronic obstructive pulmonary disease, unspecified (principal); I51.89 Other ill-defined heart diseases; R09.02 Hypoxemia; Z99.81 Dependence on supplemental oxygen
CPT/HCPCS: 94060; 94726; 94729